=== PATIENT | male | born 1990 | race Two or more races ===

== ENCOUNTER 2021-02-07 07:47 | Emergency (ER) | payer SELFPAY ==
[~2021-02-07] VITALS: Ht 185.4 cm; Wt 90.0 kg
[2021-02-07] MEDS ORDERED: LORazepam 2 MG/ML, 1ML ONE (08:26)
[2021-02-07] MEDS ORDERED: PLEASE ENTER ALLERGIES MC SCH (08:30)
[2021-02-07] MEDS ORDERED: LORazepam 2 MG/ML, 1ML IVPush ONE (08:30)
[2021-02-07] MEDS ORDERED: SODIUM CHLORIDE 0.9% 1,000ML IVBOLUS ONE (08:30)
[2021-02-07] MEDS ORDERED: SODIUM CHLORIDE FLUSH 10ML SYR IVF ONE (08:30)
[2021-02-07 08:41] LABS: BASOPHILS % (AUTO) 0 % (0-1); EOSINOPHILS % (AUTO) 1 % (1-7); LYMPHOCYTES % (AUTO) 40 % (22-44); MEAN CORPUSCULAR HEMOGLOBIN 29.6 pg (27.5-34.5); MEAN CORPUSCULAR HGB CONC 34.7 g/dL (33.2-36.2); MEAN PLATELET VOLUME 8.7 fL (7.4-10.4); MONOCYTES % (AUTO) 7 % (2-9); NEUTROPHILS % (AUTO) 53 % (42-75); PLATELET COUNT 283 x10^3/uL (130-400); RED BLOOD COUNT 5.27 x10^6/uL (4.38-5.82); RED CELL DISTRIBUTION WIDTH 13.7 % (9.4-14.8)
--- NOTE | 2021-02-07 08:50 | NUR ---
PT REPROTS STARTING A NEW MEDICATION LAST NIGHT. EFFEXOR. PT DOES NOT KNOW THE DOSAGE. AT THIS TIME. PT IS CALM AND RESTING COMFORTABLY AND REPORTS IMPROVEMENT OF SYMPTOMS. STIMULI DECREASED. WILL CONTINUE TO MONITOR.
[2021-02-07 08:53] LABS: ALANINE AMINOTRANSFERASE 52 U/L (12-78); ALBUMIN 4.3 g/dL (3.4-5.0); ANION GAP 8 mmol/L (5-15); CALCIUM 8.7 mg/dL (8.5-10.1); CHLORIDE 103 mmol/L (98-107); CREATININE 1.09 mg/dL (0.7-1.3)
[2021-02-07 08:57] LABS: ALKALINE PHOSPHATASE 131 U/L (45-117); BILIRUBIN,TOTAL 0.4 mg/dL (0.2-1.0); TOTAL PROTEIN 8.9 g/dL (6.4-8.2); TROPONIN I < 0.015 ng/mL (0.000-0.045)
[2021-02-07 10:12] VITALS: BP 114/68
== END 2021-02-07 10:18 | disposition home or self-care (01) ==
LOC: ED 10:10
DX: R07.89 Other chest pain (principal); F43.0 Acute stress reaction; F41.9 Anxiety disorder, unspecified; R00.0 Tachycardia, unspecified
CPT/HCPCS: 36415; 71045; 80053; 84484; 85025; 85379; 93005; 96361; 96374; 99285; J2060; J7030